=== PATIENT | male | born 1980 | race Caucasian/White ===

== ENCOUNTER 2019-09-16 03:14 | Emergency (ER) | payer BC ==
[~2019-09-16] VITALS: Ht 175.2 cm; Wt 72.6 kg
[~2019-09-16 03:14] MED LIST: BACTRIM DS 8001 TA1 PO; HYDROCODONE BIT1 T11 PO; KEFLEX500 MG PO; PENICILLIN VK500 MG PO; TRAMADOL HCL50 MG PO
== END 2019-09-16 04:31 | disposition home or self-care (01) ==
LOC: ED 03:14
DX: S05.01XA Injury of conjunctiva and corneal abrasion without foreign body, right eye, initial encounter (principal); S05.02XA Injury of conjunctiva and corneal abrasion without foreign body, left eye, initial encounter; F17.200 Nicotine dependence, unspecified, uncomplicated; X58.XXXA Exposure to other specified factors, initial encounter; Y93.89 Activity, other specified; Y92.098 Other place in other non-institutional residence as the place of occurrence of the external cause; Y99.8 Other external cause status